=== PATIENT | male | born 1940 | race Caucasian/White ===

== ENCOUNTER 2019-03-03 16:09 | Emergency (ER) | payer OTHER ==
[~2019-03-03] VITALS: Ht 162.6 cm; Wt 75.9 kg
[2019-03-03 16:26] VITALS: BP 171/95
--- NOTE | 2019-03-03 16:30 | NUR ---
PT AMB TO [facility]
--- NOTE | 2019-03-03 16:53 | NUR ---
PT BIB SELF FOR REFILL OF INSULIN. PT UNABLE TO GO TO PCP FOR REFILL. PT SITTING IN CHAIR FAIMLY AT BEDSIDE.
[2019-03-03 17:30] VITALS: BP 139/68
--- NOTE | 2019-03-03 17:30 | NUR ---
Patient discharged with v/s stable. Written and verbal after care instructions given and explained. Patient alert, oriented and verbalized understanding of instructions. Ambulatory with steady gait. All questions addressed prior to discharge. ID band removed. Patient advised to follow up with PMD. Rx of Lantus, Losartan, Aspirin, and Crestor given. Patient educated on indication of medication including possible reaction and side effects. Opportunity to ask questions provided and answered.
== END 2019-03-03 17:30 | disposition home or self-care (01) ==
LOC: MED 16:09
DX: I10 Essential (primary) hypertension (principal); E11.9 Type 2 diabetes mellitus without complications; E78.5 Hyperlipidemia, unspecified; Z76.0 Encounter for issue of repeat prescription
CPT/HCPCS: 99283